=== PATIENT | female | born 1985 | race Caucasian/White ===

== ENCOUNTER 2017-08-01 06:38 | Day surgery (SDC) | payer BC ==
[2017-08-01] MEDS ORDERED: Propofol 200 MG/20 ML SDV IV ONE (08:00)
[2017-08-01] MEDS ORDERED: Lactated Ringers 1,000 ML IV SCH (08:00)
[2017-08-01] MEDS ORDERED: Sodium Chloride 0.9% 10 ML Syringe FLUSH PRN (08:00)
--- NOTE | 2017-08-01 09:00 | OR ---
DATE OF OPERATION: 08/01/2017 SURGEON: Roger Wyman MD PROCEDURE PERFORMED: Colonoscopy with random colon biopsies. PREOPERATIVE DIAGNOSES: History of diarrhea, crampy abdominal pain, and bloody bowel movements. POSTOPERATIVE DIAGNOSIS: Internal hemorrhoids and normal colon. INDICATIONS FOR PROCEDURE: This is a 31-year-old white female who presents with the above-mentioned complaints. She was offered and accepted colonoscopy. DESCRIPTION OF OPERATION: After an excellent IV sedation was administered, digital rectal exam was performed. No marked abnormality was noted. Flexible colonoscope was inserted and advanced to the cecum without difficulty. Efforts to intubate the terminal ileum were unsuccessful. The following findings were noted: Ascending colon, unremarkable; random biopsies were taken. Transverse colon, unremarkable; random biopsies were taken. Descending colon, unremarkable; random biopsies were taken. Sigmoid, unremarkable; random biopsies were taken. Rectum, unremarkable; random biopsies were taken. On retroflexion of the scope, there was some evidence of internal hemorrhoids, otherwise unremarkable. The colon was deflated as the scope was removed. The patient tolerated the procedure well and was taken to the recovery room in good condition. /[id number] /DARYAL
[2017-08-01 09:22] VITALS: BP 103/59
== END 2017-08-01 09:24 | disposition home or self-care (01) ==
LOC: FB.SDS 06:38
PROVIDERS: ATTEND Surgery
DX: K64.8 Other hemorrhoids (principal); F41.9 Anxiety disorder, unspecified; F32.9 Major depressive disorder, single episode, unspecified; Z88.1 Allergy status to other antibiotic agents; Z88.8 Allergy status to other drugs, medicaments and biological substances; Z91.013 Allergy to seafood; Z79.899 Other long term (current) drug therapy; Z98.890 Other specified postprocedural states; F17.210 Nicotine dependence, cigarettes, uncomplicated
CPT/HCPCS: 45380; 81025; 88305; J2704; J7120